=== PATIENT | male | born 1965 | race African-American/Black ===

== ENCOUNTER 2016-11-06 07:48 | Emergency (ER) | payer BC ==
[~2016-11-06] VITALS: Ht 180.3 cm; Wt 91.0 kg
[2016-11-06] MEDS ORDERED: METF500T4 PO (07:56)
[2016-11-06] MEDS ORDERED: PIOG30TA2 PO (07:56)
[2016-11-06] MEDS ORDERED: SIMV20TA6 PO (07:56)
[2016-11-06] MEDS ORDERED: GLIM2TAB2 PO (07:56)
[2016-11-06] MEDS ORDERED: CLINDAMYCIN 600 MG in DEXTROSE 5% WATER 50 ML IV ONE (08:15)
[2016-11-06 08:34] LABS: MEAN PLATELET VOLUME 8.3 fl (7.4-10.4)
[2016-11-06 08:45] LABS: BASOPHILS % 1.2 % (0.0-2.0); EOSINOPHILS % 1.3 % (0.0-5.0); HEMATOCRIT. 44.1 % (42.0-52.0); HEMOGLOBIN. 14.6 g/dL (14.0-18.0); LYMPHOCYTES % 34.9 % (20.0-50.0); MEAN CORPUSCULAR HEMOGLOBIN 27.7 pg (28.0-32.0); MEAN CORPUSCULAR HGB CONC 33.2 g/dL (31.0-37.0); MEAN CORPUSCULAR VOLUME 83.6 fL (80.0-94.0); MONOCYTES % 7.5 % (2.0-8.0); NEUTROPHILS % 55.1 % (40.0-76.0); PLATELET 347 x1000/uL (130-400); RED BLOOD CELL COUNT 5.28 mill/uL (4.7-6.1); RED CELL DISTRIBUTION WIDTH 13.6 % (11.6-14.6); WHITE BLOOD COUNT 5.4 x1000/uL (4.5-11.0)
[2016-11-06 09:20] LABS: ALANINE AMINOTRANSFERASE 24 IU/L (13-61); ALBUMIN 3.7 g/dL (3.4-5.0); CALCIUM 9.1 mg/dL (8.5-10.1); CARBON DIOXIDE 27 mEq/L (21-32); UREA NITROGEN BLOOD 18 mg/dL (7-21); eGFR > 60 mL/min (>60)
[2016-11-06 09:40] LABS: ANION GAP 15; CHLORIDE 97 mEq/L (98-107); INDEX HEMOLYSI 2 (1-3); INDEX ICTERIC 1 (1-4); INDEX LIPEMIC 1 (1-3)
[2016-11-06] MEDS ORDERED: SODIUM CHLORIDE 0.9% 1,000 ML IV ONE (09:41)
[2016-11-06] MEDS ORDERED: INSULIN REGULAR (HUMULIN R) 300UNITS/3ML IV ONE (10:15)
[2016-11-06] MEDS ORDERED: LEVOFLOXACIN 750MG PREMIX 150 ML IV ONE (10:15)
[2016-11-06 11:51] VITALS: BP 125/80
== END 2016-11-06 11:59 | disposition home or self-care (01) ==
LOC: ER 07:49
DX: E11.622 Type 2 diabetes mellitus with other skin ulcer (principal); E11.65 Type 2 diabetes mellitus with hyperglycemia
CPT/HCPCS: 36415; 80053; 82962; 85025; 96361; 96365; 96375; 99285; J1815; J3490; J7030; Z7610; J7060

== ENCOUNTER → 2017-12-01 | Outpatient (CLI) | payer BC ==
[~2017-12-01] MED LIST: GLIM2TAB2 PO; METF500T4 PO; PIOG30TA10 PO; SIMV20TA6 PO
[2017-12-01 09:37] LABS: CHLORIDE 99 mEq/L (98-107)
[2017-12-01 09:44] LABS: LDL CHOLESTEROL 101 mg/dL (5-100)
[2017-12-01 09:45] LABS: HDL CHOLESTEROL 50 mg/dL (40-59)
[2017-12-01 09:46] LABS: BASOPHILS % 1.2 % (0.0-2.0); EOSINOPHILS % 1.2 % (0.0-5.0); HEMOGLOBIN. 14.9 g/dL (14.0-18.0); LYMPHOCYTES % 36.1 % (20.0-50.0); MEAN CORPUSCULAR HEMOGLOBIN 27.6 pg (28.0-32.0); MEAN CORPUSCULAR VOLUME 83.6 fL (80.0-94.0); MEAN PLATELET VOLUME 8.5 fl (7.4-10.4); MONOCYTES % 6.3 % (2.0-8.0); NEUTROPHILS % 55.2 % (40.0-76.0); PLATELET 341 x1000/uL (130-400); RED BLOOD CELL COUNT 5.38 mill/uL (4.7-6.1); RED CELL DISTRIBUTION WIDTH 14.6 % (11.6-14.6)
[2017-12-01 14:50] LABS: CLARITY URINE CLEAR (CLEAR); COLOR URINE YELLOW (YELLOW); KETONES URINE NEGATIVE (NEGATIVE); LEUKOCYTE ESTERASE URINE NEGATIVE (NEGATIVE); NITRITE URINE NEGATIVE (NEGATIVE); OCCULT BLOOD URINE NEGATIVE (NEGATIVE); PROTEIN URINE NEGATIVE (NEGATIVE); SPECIFIC GRAVITY URINE 1.039 (1.005-1.030); UROBILINOGEN URINE 0.2 E.U./dL (0.2-1.0)
== END | disposition home or self-care (01) ==
LOC: LAB 08:40
PROVIDERS: ATTEND Internal Medicine Pulmonary Disease
DX: I10 Essential (primary) hypertension (principal); M10.9 Gout, unspecified; J44.9 Chronic obstructive pulmonary disease, unspecified; N52.1 Erectile dysfunction due to diseases classified elsewhere; E11.622 Type 2 diabetes mellitus with other skin ulcer; E78.2 Mixed hyperlipidemia; E16.9 Disorder of pancreatic internal secretion, unspecified
CPT/HCPCS: 36415; 80053; 80061; 81003; 83036; 84439; 84442; 84443; 84481; 84550; 85025; 87077; 87086

== ENCOUNTER → 2018-02-23 | Outpatient (CLI) | payer BC ==
[~2018-02-23] MED LIST changes: -METF500T4 PO; +METF500T6 PO
[2018-02-23 09:54] LABS: CHLORIDE 104 mEq/L (98-107)
== END | disposition home or self-care (01) ==
LOC: LAB 08:46
PROVIDERS: ATTEND Internal Medicine Pulmonary Disease
DX: E11.622 Type 2 diabetes mellitus with other skin ulcer (principal); I10 Essential (primary) hypertension; E78.2 Mixed hyperlipidemia; N52.1 Erectile dysfunction due to diseases classified elsewhere; J44.9 Chronic obstructive pulmonary disease, unspecified; M10.9 Gout, unspecified; Z79.84 Long term (current) use of oral hypoglycemic drugs
CPT/HCPCS: 36415; 80048; 83036

== ENCOUNTER → 2018-03-17 | Outpatient (CLI) | payer BC ==
[2018-03-17 09:52] LABS: CHLORIDE 103 mEq/L (98-107)
[2018-03-17 10:00] LABS: LDL CHOLESTEROL 59 mg/dL (5-100)
[2018-03-17 10:01] LABS: HDL CHOLESTEROL 52 mg/dL (40-59)
== END | disposition home or self-care (01) ==
LOC: RAD 08:44
PROVIDERS: ATTEND Internal Medicine Pulmonary Disease
DX: J44.9 Chronic obstructive pulmonary disease, unspecified (principal); E11.9 Type 2 diabetes mellitus without complications; I10 Essential (primary) hypertension
CPT/HCPCS: 36415; 71046; 80053; 80061; 83036

== ENCOUNTER → 2018-11-23 | Outpatient (CLI) | payer BC ==
[~2018-11-23] MED LIST changes: +METF-414 PO; -METF500T6 PO
[2018-11-23 09:37] LABS: CHLORIDE 105 mEq/L (98-107)
[2018-11-23 09:44] LABS: LDL CHOLESTEROL 87 mg/dL (5-100)
[2018-11-23 09:45] LABS: HDL CHOLESTEROL 49 mg/dL (40-59)
== END | disposition home or self-care (01) ==
LOC: LAB 08:57
PROVIDERS: ATTEND Internal Medicine Pulmonary Disease
DX: E78.2 Mixed hyperlipidemia (principal); E11.9 Type 2 diabetes mellitus without complications; I10 Essential (primary) hypertension; F17.200 Nicotine dependence, unspecified, uncomplicated; E66.9 Obesity, unspecified; N32.1 Vesicointestinal fistula
CPT/HCPCS: 36415; 80061

== ENCOUNTER → 2019-01-15 | Outpatient (CLI) | payer BC ==
[2019-01-15 09:25] LABS: CLARITY URINE CLEAR (CLEAR); COLOR URINE YELLOW (YELLOW); KETONES URINE NEGATIVE (NEGATIVE); LEUKOCYTE ESTERASE URINE NEGATIVE (NEGATIVE); NITRITE URINE NEGATIVE (NEGATIVE); OCCULT BLOOD URINE NEGATIVE (NEGATIVE); PH URINE 5.5 (4.5-8.0); PROTEIN URINE NEGATIVE (NEGATIVE); SPECIFIC GRAVITY URINE 1.015 (1.005-1.030); UROBILINOGEN URINE 0.2 E.U./dL (0.2-1.0)
[2019-01-15 09:29] LABS: BASOPHILS % 0.8 % (0.0-2.0); EOSINOPHILS % 0.9 % (0.0-5.0); HEMATOCRIT. 39.1 % (42.0-52.0); HEMOGLOBIN. 12.7 g/dL (14.0-18.0); LYMPHOCYTES % 40.5 % (20.0-50.0); MEAN CORPUSCULAR HEMOGLOBIN 27.7 pg (28.0-32.0); MEAN CORPUSCULAR VOLUME 85.4 fL (80.0-94.0); MEAN PLATELET VOLUME 8.1 fl (7.4-10.4); MONOCYTES % 8.9 % (2.0-8.0); NEUTROPHILS % 48.9 % (40.0-76.0); PLATELET 306 x1000/uL (130-400); RED BLOOD CELL COUNT 4.57 mill/uL (4.7-6.1); RED CELL DISTRIBUTION WIDTH 14.8 % (11.6-14.6)
[2019-01-15 09:32] LABS: CHLORIDE 106 mEq/L (98-107)
== END | disposition home or self-care (01) ==
LOC: LAB 08:55
PROVIDERS: ATTEND Internal Medicine Pulmonary Disease
DX: E11.622 Type 2 diabetes mellitus with other skin ulcer (principal); E66.9 Obesity, unspecified; E78.2 Mixed hyperlipidemia
CPT/HCPCS: 36415; 80048; 83036

== ENCOUNTER 2019-09-14 05:51 | Inpatient (IN) | payer BC ==
[~2019-09-14] VITALS: Ht 180.3 cm; Wt 113.4 kg
[~2019-09-14 05:51] MED LIST changes: -GLIM2TAB2 PO; +GLIM2TAB30 PO; +SIMV-43 PO; -SIMV20TA6 PO
[2019-09-14] MEDS ORDERED: ONDANSETRON HCL 4MG/2ML INJ IV ONE (06:45)
[2019-09-14] MEDS ORDERED: MECLIZINE 25MG TABLET PO ONE (06:45)
[2019-09-14] MEDS ORDERED: ENALAPRIL 2.5MG/2ML VIAL 2ML IV ONE (06:45)
[2019-09-14] MEDS ORDERED: ENALAPRIL 1.25MG/ML VIAL 1ML IV ONE (06:46)
[2019-09-14 06:51] LABS: EOSINOPHILS % 0.1 % (0.0-5.0); HEMATOCRIT. 41.4 % (42.0-52.0); HEMOGLOBIN. 13.5 g/dL (14.0-18.0); LYMPHOCYTES % 7.2 % (20.0-50.0); MEAN CORPUSCULAR HEMOGLOBIN 27.5 pg (28.0-32.0); MEAN CORPUSCULAR VOLUME 84.5 fL (80.0-94.0); MEAN PLATELET VOLUME 8.6 fl (7.4-10.4); MONOCYTES % 3.7 % (2.0-8.0); PLATELET 333 x1000/uL (130-400); RED CELL DISTRIBUTION WIDTH 14.7 % (11.6-14.6)
[2019-09-14 06:57] LABS: CHLORIDE 100 mEq/L (98-107)
[2019-09-14 07:10] LABS: CREATINE KINASE 425 IU/L (39-308); CREATINE KINASE MB FRACTION 2.1 ng/mL (0.5-3.6)
[2019-09-14 07:47] LABS: CLARITY URINE CLEAR (CLEAR); COLOR URINE YELLOW (YELLOW); KETONES URINE TRACE (NEGATIVE); LEUKOCYTE ESTERASE URINE NEGATIVE (NEGATIVE); NITRITE URINE NEGATIVE (NEGATIVE); OCCULT BLOOD URINE 1+ (NEGATIVE); PH URINE 5.5 (4.5-8.0); PROTEIN URINE 2+ (NEGATIVE); SPECIFIC GRAVITY URINE 1.031 (1.005-1.030); UROBILINOGEN URINE 0.2 E.U./dL (0.2-1.0)
[2019-09-14] MEDS ORDERED: DEXTROSE 50% WATER 50ML SYRINGE IV PRN (10:00)
[2019-09-14] MEDS ORDERED: ACETAMINOPHEN 325MG TABLET PO ONE (10:00)
[2019-09-14] MEDS: LISINOPRIL 20MG TABLET PO SCH (10:00)
[2019-09-14] MEDS ORDERED: ONDANSETRON HCL 4MG/2ML INJ IV PRN (10:00)
[2019-09-14] MEDS ORDERED: CLONIDINE 0.1MG TABLET PO PRN (10:15)
[2019-09-14 14:46] LABS: CREATINE KINASE 357 IU/L (39-308)
[2019-09-14] MEDS: BLOOD SUGAR DIAGNOSTIC STRIP TEST SCH (21:05)
[2019-09-14] MEDS: INSULIN LISPRO 100 UNITS/ML SUBCUT SCH (21:05)
[2019-09-14] MEDS ORDERED: ACETAMINOPHEN 325MG TABLET PO SCH (21:15)
[2019-09-14] MEDS: ATORVASTATIN CALCIUM 20MG TABLET PO SCH (21:41)
[2019-09-14 22:00] VITALS: BP_SYST 122; BP_SYST 128; BP_DIAS 66; BP_DIAS 71
[2019-09-14] MEDS ORDERED: BUTALBITAL/ACETAMINOPHEN/CAFFEINE 50/325/40MG TABLET PO PRN (22:00)
[2019-09-14 22:32] VITALS: BP 116/69
[2019-09-15] VITALS: BP 128/66
[2019-09-15 04:00] VITALS: BP 145/74
[2019-09-15 07:37] LABS: HEMATOCRIT. 37.1 % (42.0-52.0); HEMOGLOBIN. 12.4 g/dL (14.0-18.0); MEAN CORPUSCULAR HEMOGLOBIN 27.8 pg (28.0-32.0); MEAN CORPUSCULAR VOLUME 83.5 fL (80.0-94.0); MEAN PLATELET VOLUME 8.7 fl (7.4-10.4); PLATELET 266 x1000/uL (130-400); RED BLOOD CELL COUNT 4.45 mill/uL (4.7-6.1); RED CELL DISTRIBUTION WIDTH 14.6 % (11.6-14.6)
[2019-09-15 07:48] LABS: LDL CHOLESTEROL 43 mg/dL (5-100)
[2019-09-15] MEDS: BLOOD SUGAR DIAGNOSTIC STRIP TEST SCH ×4 (07:48→20:29)
[2019-09-15] MEDS: INSULIN LISPRO 100 UNITS/ML SUBCUT SCH ×5 (07:49→20:30)
[2019-09-15 07:50] LABS: HDL CHOLESTEROL 51 mg/dL (40-59)
[2019-09-15 08:00] VITALS: BP 144/91
[2019-09-15] MEDS ORDERED: METFORMIN HCL 500MG TABLET PO SCH (08:10)
[2019-09-15] MEDS: LISINOPRIL 20MG TABLET PO SCH (08:53)
[2019-09-15] MEDS: PIOGLITAZONE 15MG TABLET PO SCH ×2 (09:00→09:53)
[2019-09-15] MEDS ORDERED: DEXTROSE 50% WATER 50ML SYRINGE IV PRN (10:45)
[2019-09-15] MEDS: ACETAMINOPHEN 650MG/20.3ML UDC PO PRN ×2 (10:49→17:47)
[2019-09-15 12:00] VITALS: BP 105/52
[2019-09-15] MEDS ORDERED: BLOOD SUGAR DIAGNOSTIC STRIP TEST SCH (12:40)
[2019-09-15 12:52] LABS: CREATINE KINASE 494 IU/L (39-308)
[2019-09-15 15:39] LABS: HEMATOCRIT. 37.9 % (42.0-52.0); HEMOGLOBIN. 12.4 g/dL (14.0-18.0); MEAN CORPUSCULAR HEMOGLOBIN 27.5 pg (28.0-32.0); MEAN CORPUSCULAR VOLUME 84.1 fL (80.0-94.0); MEAN PLATELET VOLUME 8.7 fl (7.4-10.4); PLATELET 257 x1000/uL (130-400); RED CELL DISTRIBUTION WIDTH 14.4 % (11.6-14.6)
[2019-09-15 16:00] VITALS: BP 117/57
[2019-09-15] MEDS: METFORMIN HCL 850MG TABLET PO SCH (17:47)
[2019-09-15 20:00] VITALS: BP 105/56
[2019-09-15] MEDS: ATORVASTATIN CALCIUM 20MG TABLET PO SCH (20:29)
[2019-09-15 21:23] LABS: PLATELET ESTIMATE NORMAL
[2019-09-15 23:25] LABS: PLATELET ESTIMATE NORMAL
[2019-09-16] VITALS: BP 130/65
[2019-09-16 04:00] VITALS: BP 150/79
[2019-09-16] MEDS: ACETAMINOPHEN 650MG/20.3ML UDC PO PRN ×2 (05:37→11:18)
[2019-09-16 06:13] LABS: CHLORIDE 104 mEq/L (98-107)
[2019-09-16 06:21] LABS: CREATINE KINASE 630 IU/L (39-308)
[2019-09-16] MEDS: BLOOD SUGAR DIAGNOSTIC STRIP TEST SCH ×4 (07:40→21:00)
[2019-09-16 08:00] VITALS: BP 129/64
[2019-09-16] MEDS: INSULIN LISPRO 100 UNITS/ML SUBCUT SCH ×4 (08:19→21:42)
[2019-09-16] MEDS: LISINOPRIL 20MG TABLET PO SCH (08:20)
[2019-09-16] MEDS: METFORMIN HCL 850MG TABLET PO SCH ×2 (08:20→19:01)
[2019-09-16] MEDS: PIOGLITAZONE 15MG TABLET PO SCH (08:21)
[2019-09-16 12:00] VITALS: BP 166/75
[2019-09-16 16:06] VITALS: BP 136/59
[2019-09-16 20:00] VITALS: BP 123/73
[2019-09-16] MEDS ORDERED: PIPERACILLIN/TAZOBACTAM 3.375 G/VIAL IV SCH (21:00)
[2019-09-16] MEDS: PIPERACILLIN/TAZOBACTAM 3.375 G in DEXT 5% WATER 100 ML IV SCH (21:49)
[2019-09-16] MEDS ORDERED: VANCOMYCIN 1 G PREMIX 200 ML IV SCH (23:00)
[2019-09-17] VITALS: BP 148/79
[2019-09-17] MEDS: ACETAMINOPHEN 650MG/20.3ML UDC PO PRN (02:58)
[2019-09-17] MEDS: PIPERACILLIN/TAZOBACTAM 3.375 G in DEXT 5% WATER 100 ML IV SCH ×4 (03:05→21:18)
[2019-09-17 04:00] VITALS: BP 128/67
[2019-09-17] MEDS: BLOOD SUGAR DIAGNOSTIC STRIP TEST SCH ×4 (06:50→20:31)
[2019-09-17 07:34] LABS: BASOPHILS % 0.6 % (0.0-2.0); EOSINOPHILS % 0.1 % (0.0-5.0); HEMATOCRIT. 34.7 % (42.0-52.0); HEMOGLOBIN. 11.6 g/dL (14.0-18.0); MEAN CORPUSCULAR HEMOGLOBIN 27.8 pg (28.0-32.0); MEAN CORPUSCULAR VOLUME 83.1 fL (80.0-94.0); MEAN PLATELET VOLUME 8.7 fl (7.4-10.4); MONOCYTES % 8.9 % (2.0-8.0); NEUTROPHILS % 79.4 % (40.0-76.0); PLATELET 267 x1000/uL (130-400); RED BLOOD CELL COUNT 4.18 mill/uL (4.7-6.1); RED CELL DISTRIBUTION WIDTH 14.7 % (11.6-14.6)
[2019-09-17 07:38] LABS: CREATINE KINASE 413 IU/L (39-308)
[2019-09-17 08:00] VITALS: BP_SYST 143; BP_SYST 146; BP_DIAS 75
[2019-09-17] MEDS: METFORMIN HCL 850MG TABLET PO SCH ×2 (08:51→17:37)
[2019-09-17] MEDS: LISINOPRIL 20MG TABLET PO SCH (08:51)
[2019-09-17] MEDS: PIOGLITAZONE 15MG TABLET PO SCH (08:51)
[2019-09-17] MEDS: INSULIN LISPRO 100 UNITS/ML SUBCUT SCH ×4 (08:53→21:19)
[2019-09-17] MEDS: IBUPROFEN 200MG TABLET PO PRN ×2 (08:54→19:53)
[2019-09-17] MEDS: VANCOMYCIN 1 G PREMIX 200 ML IV SCH ×2 (10:50→22:58)
[2019-09-17 12:00] VITALS: BP 124/72
[2019-09-17 16:00] VITALS: BP 127/71
[2019-09-17 20:00] VITALS: BP 132/78
[2019-09-18] VITALS: BP 132/73
[2019-09-18 04:00] VITALS: BP 130/75
[2019-09-18] MEDS: PIPERACILLIN/TAZOBACTAM 3.375 G in DEXT 5% WATER 100 ML IV SCH ×3 (04:29→18:57)
[2019-09-18 06:49] LABS: BASOPHILS % 0.7 % (0.0-2.0); EOSINOPHILS % 0.4 % (0.0-5.0); HEMATOCRIT. 35.1 % (42.0-52.0); HEMOGLOBIN. 11.7 g/dL (14.0-18.0); LYMPHOCYTES % 17.9 % (20.0-50.0); MEAN CORPUSCULAR HEMOGLOBIN 27.8 pg (28.0-32.0); MEAN CORPUSCULAR VOLUME 83.4 fL (80.0-94.0); MEAN PLATELET VOLUME 8.6 fl (7.4-10.4); MONOCYTES % 14.7 % (2.0-8.0); NEUTROPHILS % 66.3 % (40.0-76.0); PLATELET 285 x1000/uL (130-400); RED BLOOD CELL COUNT 4.21 mill/uL (4.7-6.1); RED CELL DISTRIBUTION WIDTH 14.6 % (11.6-14.6)
[2019-09-18 07:34] LABS: CHLORIDE 102 mEq/L (98-107)
[2019-09-18] MEDS: BLOOD SUGAR DIAGNOSTIC STRIP TEST SCH ×4 (07:40→21:21)
[2019-09-18 07:43] LABS: CREATINE KINASE 350 IU/L (39-308)
[2019-09-18 08:00] VITALS: BP 139/73
[2019-09-18 08:11] LABS: *CREATININE RANDOM URINE 105.2 mg/dL (Not Estab.); MICROALBUMIN RANDOM URINE 137.2 ug/mL (Not Estab.)
[2019-09-18] MEDS: PIOGLITAZONE 15MG TABLET PO SCH (09:42)
[2019-09-18] MEDS: METFORMIN HCL 850MG TABLET PO SCH (09:43)
[2019-09-18] MEDS: LISINOPRIL 20MG TABLET PO SCH (09:44)
[2019-09-18] MEDS: INSULIN LISPRO 100 UNITS/ML SUBCUT SCH ×4 (09:45→21:00)
[2019-09-18] MEDS: VANCOMYCIN 1 G PREMIX 200 ML IV SCH (11:33)
[2019-09-18 12:00] VITALS: BP 148/79
[2019-09-18 16:00] VITALS: BP 145/70
[2019-09-18] MEDS ORDERED: MAGNESIUM HYDROXIDE 400MG/5ML 30ML UDC PO NR (17:00)
[2019-09-18] MEDS ORDERED: DOCUSATE SODIUM 250MG CAPSULE PO NR (17:00)
[2019-09-18] MEDS ORDERED: MAGNESIUM HYDROXIDE 400MG/5ML 30ML UDC PO PRN (17:00)
[2019-09-18] MEDS: METFORMIN HCL 500MG TABLET PO SCH (18:56)
[2019-09-18] MEDS: IBUPROFEN 200MG TABLET PO PRN (18:59)
[2019-09-18 19:06] LABS: ANTI-NUCLEAR ANTIBODIES DIRECT Negative (Negative)
[2019-09-18 20:00] VITALS: BP 142/75
[2019-09-19] VITALS (7 sets, daily range): BP systolic 130–145; BP diastolic 34–82
[2019-09-19] MEDS: PIPERACILLIN/TAZOBACTAM 3.375 G in DEXT 5% WATER 100 ML IV SCH ×4 (00:03→15:25)
[2019-09-19] MEDS: VANCOMYCIN 1 G PREMIX 200 ML IV SCH ×2 (02:15→11:56)
[2019-09-19] MEDS: BLOOD SUGAR DIAGNOSTIC STRIP TEST SCH ×3 (07:46→17:40)
[2019-09-19] MEDS: PIOGLITAZONE 15MG TABLET PO SCH (08:55)
[2019-09-19] MEDS: METFORMIN HCL 500MG TABLET PO SCH ×2 (08:55→18:13)
[2019-09-19] MEDS: LISINOPRIL 20MG TABLET PO SCH (08:55)
[2019-09-19] MEDS: INSULIN LISPRO 100 UNITS/ML SUBCUT SCH ×3 (08:56→18:13)
[2019-09-19] MEDS ORDERED: DOCUSATE SODIUM 250MG CAPSULE PO SCH (09:00)
[2019-09-19] MEDS ORDERED: ENOXAPARIN 30MG/0.3ML SYR SUBCUT SCH (09:00)
[2019-09-19 15:06] LABS: ATYPICAL P-ANCA <1:20 titer (Neg:<1:20); CYTOPLASMIC C-ANCA <1:20 titer (Neg:<1:20); PERINUCLEAR P-ANCA <1:20 titer (Neg:<1:20)
[2019-09-19] MEDS: IBUPROFEN 200MG TABLET PO PRN (18:28)
[2019-09-20 13:07] LABS: ANTI-MYELOPEROXIDASE AB < 9.0 U/mL (0.0-9.0); ANTI-PROTEINASE 3 ABS < 3.5 U/mL (0.0-3.5)
== END 2019-09-19 18:40 | disposition home health service (06) | DRG 593 ==
LOC: ER 05:51 → 7WST 08:30 → EDBEDREQ 08:36 → EDBEDREQTM 08:36 → EDBEDREQ 10:16 → ENRESERV 19:55 → 7WST 09-15 02:01
PROVIDERS: ADMIT Internal Medicine Critical Care Medicine; ATTEND Internal Medicine Critical Care Medicine
DX: L97.819 Non-pressure chronic ulcer of other part of right lower leg with unspecified severity (principal); M62.82 Rhabdomyolysis; L03.115 Cellulitis of right lower limb; D68.9 Coagulation defect, unspecified; I11.9 Hypertensive heart disease without heart failure; E11.65 Type 2 diabetes mellitus with hyperglycemia; E78.5 Hyperlipidemia, unspecified; F17.210 Nicotine dependence, cigarettes, uncomplicated; D69.6 Thrombocytopenia, unspecified; E78.00 Pure hypercholesterolemia, unspecified; K59.00 Constipation, unspecified; D64.9 Anemia, unspecified; T50.995A Adverse effect of other drugs, medicaments and biological substances, initial encounter; E11.42 Type 2 diabetes mellitus with diabetic polyneuropathy; E66.9 Obesity, unspecified; Z68.34 Body mass index [BMI] 34.0-34.9, adult; Z79.84 Long term (current) use of oral hypoglycemic drugs; Z79.899 Other long term (current) drug therapy; Z82.49 Family history of ischemic heart disease and other diseases of the circulatory system; Z83.3 Family history of diabetes mellitus; Z91.19 Patient's noncompliance with other medical treatment and regimen; Y92.89 Other specified places as the place of occurrence of the external cause
CPT/HCPCS: 36415; 71045; 80048; 80053; 80061; 80202; 81003; 82043; 82550; 82553; 82570; 82962; 83036; 83520; 83605; 83880; 84145; 84484; 85025; 85651; 86038; 86140; 86256; 87804; 93005; 93970; 96374; 99285; J1650; J1815; J2405; J2543; J3370; J3490; J7060; J8597

== ENCOUNTER → 2020-02-13 | Outpatient (CLI) | payer BC ==
[2020-02-13 09:22] LABS: CHLORIDE 104 mEq/L (98-107)
[2020-02-13 09:29] LABS: LDL CHOLESTEROL 120 mg/dL (5-100)
[2020-02-13 09:31] LABS: HDL CHOLESTEROL 45 mg/dL (40-59)
[2020-02-13 09:32] LABS: CREATINE KINASE 406 IU/L (39-308)
== END | disposition home or self-care (01) ==
LOC: LAB 08:49
PROVIDERS: ATTEND Internal Medicine Pulmonary Disease
DX: E11.9 Type 2 diabetes mellitus without complications (principal); I10 Essential (primary) hypertension; N32.1 Vesicointestinal fistula; E78.2 Mixed hyperlipidemia; E11.622 Type 2 diabetes mellitus with other skin ulcer; F17.200 Nicotine dependence, unspecified, uncomplicated
CPT/HCPCS: 36415; 80053; 80061; 82085; 82550; 83036

== ENCOUNTER 2020-12-29 02:35 | Emergency (ER) | payer BC ==
[~2020-12-29] VITALS: Ht 180.3 cm; Wt 109.0 kg
[2020-12-29] MEDS ORDERED: IBUP-2029 MT (03:58)
[2020-12-29 04:12] VITALS: BP 145/84
== END 2020-12-29 04:13 | disposition home or self-care (01) ==
LOC: ER 02:40
DX: R51.9 Headache, unspecified (principal); E11.65 Type 2 diabetes mellitus with hyperglycemia; M25.511 Pain in right shoulder; M62.838 Other muscle spasm; M54.2 Cervicalgia; M54.89 Other dorsalgia; E78.00 Pure hypercholesterolemia, unspecified; Z79.84 Long term (current) use of oral hypoglycemic drugs; Z91.81 History of falling
CPT/HCPCS: 73030; 82962; 99283